=== PATIENT | female | born 1960 | race Hispanic/Latino ===

== ENCOUNTER 2024-05-19 11:58 | Emergency (ER) | payer MEDICAID ==
--- OUTSIDE RECORDS SUMMARY | 2024-05-19 12:03 | XMS REPORT | Continuity of Care Document ---
Author Name Unknown Address [address] [facility] [address] [place] [address] [facility] thconnect Address [address] [facility] [address] [place] [address] Care Team Providers Care Science Job Titles Name Role Phone Pcp, Patient Does Not Have A Primary Care Physic william LATISHA HAWLEY Attending Clinician Unavailable SUKH QUACH Attending Clinician Unavailable ZAC MACEDO Attending Clinician Unavailable MD DARRELL Attending Clinician Unavailab JEROME Zafar Attending Clinician Unavailable MJ LOMAS Attending Clinician Unavailable NETO WILLOUGHYB Attending Clinician Unav ailable KEITH LUTZ Attending Clinician Unavailable AYANA CLARK Attending Clinician Unavailable LAB90 Attending Clinician Unavailable PJ QUACH Attending Clinician Unavailable MANDO WEBB Attending Clinician Unava ilable [email or web address]_S Attending Clinician Unavaila NOLAN Cooley Attending Clinician UnavailMAJO Cross Attending Clinician Unavailable NANCY OLWRY Attending Clinician Unavailable COBY MENDES Attending Clinician Unavailable OBEY VALENZUELA Attending Clinician Unavailab ALBIN Rodriguez Attending Clinician Unav ailable ANA MARIA BARBER Attending Clinician Unavaila Ana Maria Upton Attending Clinician [phone] CLAUDY MENDES Attending Clinician Unavailable STAN SHARIF Attending Clinician Unavail able SHERYL MARIE Attending Clinician Unavailable Sheryl Pandya Attending Clinician [phone] [id number] Attending Clinician Unavailable INEZ Attending Clinician Unavailable SHAD GAYLE Attending Clinician Unavaila JCARLOS Lord Attending Clinician Unavailab SAUNDRA Hill Attending Clinician Unavailable Sukh Quach DO Attending Clinician [phone] SARAH HELMSOI Evangelina Attending Clinician Unavailab demetria WATERSZinaS Attending Clinician Unavailable Logan Beyer Attending Clinician [phone] NAT_L Attending Clinician Unavailable Karie Walter Attending Clinician [phone] Lab, Adc Fam Pob I Attending Clinician Unavailab Ana Lebron MD Attending Clinician [phone] ANA QUESADA Attending Clinician Unavailable Doctor Unassigned, Big[place] Attending Clinician U navailable [email or web address] Admitting Clinician Unavaila SHERYL Sandhu Admitting Clinician Unavailable WATERS_S Admitting Clinician Unavailable NAT_Venkat Admitting Clinician Unavailable Payers Payer Name Policy Type Policy Number Effective Date Expirati on Date Source Bib + Tuck [employer] 16 [id number] 00:00:00 [facility] [id number] 2021 00:00:00 Problems Condition Name Condition Details Condition Category Status Onset Date Resolution Date Last Treatment Date Treating Clinician Comments Source Alzheimer' s disease, unspecifie d Alzheimer' s disease, unspecifie d Disease Active 10-09 00:00: 00 Xiomara herbert Immunodefi ciency due to conditions classified elsewhere (multi HCC) Immunodefi ciency due to conditions classified elsewhere (multi HCC) Disease Active 09-11 00:00: 00 Xiomara herbert Chronic obstructiv e pulmonary disease, unspecifie d COPD type (multi HCC) Chronic obstructiv e pulmonary disease, unspecifie d COPD type (multi HCC) Disease Active 09-11 00:00: 00 Xiomara herbert 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 10/2021 A1c 5.8 Xiomara Seybold - Externa l Mixed hyperlipid emia Mixed hyperlipid emia Disease Active 10-26 00:00: 00 Overview: Formattin g of this note might be different from the original. Lab 10/2021 showed mixed Hyperlipi demia Xiomara Seybold - Externa l Well adult exam Well adult exam Disease Active 10-25 00:00: 00 Xiomara Bellold - Externa l Attention deficit hyperactiv ity disorder (ADHD), predominan tly inattentiv e type Attention deficit hyperactiv ity disorder (ADHD), predominan tly inattentiv e type Disease Active 10-25 00:00: 00 Overview: Formattin g of this note might be different from the original. JAMES Funez - Externa l Bipolar disorder, current episode mixed, moderate (multi HCC) Bipolar disorder, current episode mixed, moderate (multi HCC) Disease Active 10-25 00:00: 00 Overview: Formattin g of this note might be different from the original. JAMES Funez - Externa l Dementia associated with other underlying disease without behavioral disturbanc e Dementia associated with other underlying disease without behavioral disturbanc e Disease Active 10-25 00:00: 00 Overview: Formattin g of this note might be different from the original. Neurology -Dr. Jay herbert Chronic bilateral low back pain without sciatica Chronic bilateral low back pain without sciatica Disease Active 10-25 00:00: 00 Xiomara herbert Slow transit constipati on Slow transit constipati on Disease Active 10-25 00:00: 00 Overview: Formattin g of this note might be different from the original. GI-Dr. Wilian herbert Seasonal allergic rhinitis due to pollen Seasonal allergic rhinitis due to pollen Disease Active 10-25 00:00: 00 Xiomara herbert Tobacco abuse Tobacco abuse Disease Active 10-25 00:00: 00 Xiomara herbert No known active problems No known active problems Disease [facility] Allergies, Adverse Reactions, Alerts Allergy Name Allergy Type Status Severity Reaction(s) Onset Date Inactive Date Treating Clinician Comments Source Penicill ins Propensi ty to adverse reaction s Active 01-05 00:00: 00 Other reaction( s): Unknown - See comments Xiomara herbert Penicill ins Propensi ty to adverse reaction s Active Unknown - See comments 01-05 00:00: 00 [facility] PENICILL INS Drug Class Active Unknown-Cmnt 01-05 00:00: 00 [facility] Penicill ins Propensi ty to adverse reaction s Active Unknown - See comments 01-05 00:00: 00 [facility] PENICILL INS Allergy to substanc e Active [facility] NO KNOWN ALLERGIE S Drug Class Active [facility] Social History Social Habit Start Date Stop Date Quantity Comments Source Exposure to SARS-CoV-2 (event) Not sure [facility] History of tobacco use Cigarette Smoker Xiomara Lowry External Alcoholic beverage intake 2023-10-10 00:00:00 2023-10-10 00:00:00 Lifetime non-drinker (finding) Xiomara Savage - External Alcohol intake 2023-04-24 00:00:00 2023-04-24 00:00:00 Lifetime non-drinker (finding) Xiomara Savage - External History of Social function 2023-01-08 00:00:00 2023-01-08 00:00:00 Xiomara Savage - External Tobacco use and exposure 2021-10-25 00:00:00 2021-10-25 00:00:00 Smokeless tobacco non-user Xiomara Savage - External Education 2021-10-25 00:00:00 2021-10-25 00:00:00 16 Xiomara Savage - External Sex assigned at 1960 00:00:00 1960 00:00:00 Xiomara Savage - External Smoking Status Start Date Stop Date Source Heavy Tobacco Smoker [facility] Tobacco smoking consumption unknown [facility] [place] [place] Smokes tobacco daily 2021-10-25 00:00:00 Xiomara Savage - External Medications Ordered Medication Name Filled Medication Name Start Date Stop Date Current Medication? Ordering Clinician Indication Dosage Frequency Signature (SIG) Comments Components Source Sertraline HCl 100 MG oral Tablet 10-09 10:53: 06 Yes 100mg 1 tablet (100 mg total) daily. Xiomara herbert Memantine HCl (Namenda) 10 MG oral Tablet 10-09 10:53: 06 Yes 10mg Take 1 tablet (10 mg total) by mouth 2 times daily. Xiomara herbert linaCLOtide (Linzess) 290 MCG oral Capsule 10-09 10:53: 06 Yes 290ug Take 1 capsule (290 mcg total) by mouth daily. Xiomara herbert Cariprazine HCl (Vraylar) 6 MG oral Capsule 10-09 10:53: 06 Yes 6mg Take 6 mg by mouth daily Xiomara herbert Semaglutide -Weight Management (Wegovy) 0.25 MG/0.5ML subcutaneou s Solution Auto-inject or 10-09 00:00: 00 Yes [id number] .25mg Inject 0.25 mg into the skin once a week. Xiomara herbert Metoprolol Succinate 100 MG oral TABLET SR 24 HR 10-09 00:00: 00 Yes [id number] 100mg Take 1 tablet (100 mg total) by mouth daily Take in addition to 50 mg tab. Xiomara herbert Metoprolol Succinate 50 MG oral TABLET SR 24 HR 10-09 00:00: 00 Yes [id number] 50mg Take 1 tablet (50 mg total) by mouth daily Take in addition to 100 mg tabs. Xiomara herbert Sertraline HCl 100 MG oral Tablet 10-04 13:42: 43 Yes 100mg 1 tablet (100 mg total) daily. Xiomara herbert Memantine HCl (Namenda) 10 MG oral Tablet 10-04 13:42: 43 Yes 10mg Take 1 tablet (10 mg total) by mouth 2 times daily. Xiomara herbert linaCLOtide (Linzess) 290 MCG oral Capsule 10-04 13:42: 43 Yes 290ug Take 1 capsule (290 mcg total) by mouth daily. Xiomara herbert Cariprazine HCl (Vraylar) 6 MG oral Capsule 10-04 13:42: 43 Yes 6mg Take 6 mg by mouth daily Xiomara herbert Meloxicam 15 MG oral Tablet 10-04 00:00: 00 Yes 15mg Take 1 tablet (15 mg total) by mouth daily Take with Meals, STOP IF UPSET STOMACH. Xiomara herbert Sertraline HCl 100 MG oral Tablet 09-25 10:58: 36 Yes 100mg 1 tablet (100 mg total) daily. Xiomara herbert Memantine HCl (Namenda) 10 MG oral Tablet 09-25 10:58: 36 Yes 10mg Take 1 tablet (10 mg total) by mouth 2 times daily. Xiomara herbert linaCLOtide (Linzess) 290 MCG oral Capsule 09-25 10:58: 36 Yes 290ug Take 1 capsule (290 mcg total) by mouth daily. Xiomara herbert Cariprazine HCl (Vraylar) 6 MG oral Capsule 09-25 10:58: 36 Yes 6mg Take 6 mg by mouth daily Xiomara herbert Fluticasone -Salmeterol (Wixela Inhub) 250-50 MCG/ACT inhalation AEROSOL POWDER, BREATH ACTIVATED 09-25 00:00: 00 Yes [id number] 1{puff} Inhale 1 puff into the lungs 2 times daily. Xiomara herbert Albuterol HFA 108 (90 Base) MCG/ACT IN AERS 09-25 00:00: 00 10-09 00:00 :00 No [id number] 2{puff} Q.25D Inhale 2 puffs into the lungs every 6 hours as needed for wheezing or shortness of breath. Xiomara herbert Vitamin D, Ergocalcife rol, 1.25 MG (01154 UT) oral Capsule 09-19 00:00: 00 Yes [id number] 81406B Take 1 capsule (50,000 units total) by mouth once a week. Xiomara herbert Calcium 600 MG oral Tablet 09-19 00:00: 00 Yes [id number] 1200mg Take 1,200 mg by mouth daily. Xiomara herbert Metoprolol Succinate 50 MG oral TABLET SR 24 HR 09-11 00:00: 00 10-09 00:00 :00 No [id number] 100mg Take 2 tablets (100 mg total) by mouth daily. Xiomara herbert Fluticasone -Umeclidin- Vilant (Trelegy Ellipta) 100-62.5-25 MCG/ACT inhalation AEROSOL POWDER, BREATH ACTIVATED 09-11 00:00: 00 09-25 00:00 :00 No [id number] 1{puff} Inhale 1 puff into the lungs daily. Xiomara herbert Metoprolol Succinate 50 MG oral TABLET SR 24 HR 09-11 00:00: 00 09-11 00:00 :00 No [id number] 50mg Take 1 tablet (50 mg total) by mouth daily. Xiomara herbert Quetiapine Fumarate 100 MG oral Tablet 09-09 00:00: 00 Yes 100mg Take 1 tablet (100 mg total) by mouth nightly. Xiomara herbert Losartan Potassium (COZAAR) 100 MG oral Tablet 08-22 00:00: 00 Yes [id number] 100mg Take 1 tablet (100 mg total) by mouth daily. Xiomara herbert Metoprolol Succinate 25 MG oral TABLET SR 24 HR 08-22 00:00: 00 09-11 00:00 :00 No [id number] 25mg Take 1 tablet (25 mg total) by mouth daily. Xiomara herbert hydroCHLORO thiazide 25 MG oral Tablet -11 00:00: 00 Yes [id number] 25mg Take 1 tablet (25 mg total) by mouth daily. Xiomara herbert hydrOXYzine HCl 25 MG oral Tablet 07-23 00:00: 00 Yes TAKE 1-2 TABLET BY MOUTH EVERY EVENING NEEDED FOR ANXIETY Xiomara herbert Alendronate Sodium 70 MG oral Tablet 3-07 00:00: 00 09-11 00:00 :00 No [id number] 70mg Take 1 tablet (70 mg total) by mouth every 7 days. Xiomara herbert Atorvastati n Calcium 10 MG oral Tablet 1-16 00:00: 00 Yes [id number] 10mg Take 1 tablet (10 mg total) by mouth daily. Xiomara herbert Doxycycline Hyclate 100 MG oral Tablet - 00:00: 00 Yes [id number] 100mg Take 1 tablet (100 mg total) by mouth 2 times daily. Xiomara herbert methylPREDN ISolone 4 MG oral Tablet Therapy Pack - 00:00: 00 09-11 00:00 :00 No [id number] 1{shashi} Take 1 shashi by mouth See Admin Instructio ns Use as directed. Xiomara herbert Pseudoeph-B romphen-DM 30-2-10 MG/5ML oral Syrup 2022-04 06-13 00:00: 00 09-11 00:00 :00 No [id number] 10mL Q.25D Take 10 mL by mouth 4 times daily as needed. Xiomara herbert Azithromyci n 250 MG oral Tablet 2022-04 00:00: 00 04-18 05:59 :00 No [id number] Take 2 tablets by mouth on day 1 then 1 tablet by mouth daily for 4 days thereafter .. Xiomara herbert Alendronate Sodium 70 MG oral Tablet 2022-04 00:00: 00 Yes [id number] 70mg Take 1 tablet (70 mg total) by mouth every 7 days. Xiomara herbert Losartan Potassium (COZAAR) 100 MG oral Tablet 2022-04 00:00: 00 Yes [id number] 100mg Take 1 tablet (100 mg total) by mouth daily. Xiomara herbert Metoprolol Succinate 25 MG oral TABLET SR 24 HR 2022-04 00:00: 00 Yes [id number] 25mg Take 1 tablet (25 mg total) by mouth daily. Xiomara herbert linaCLOtide (Linzess) 290 MCG oral Capsule 2022-04 15:22: 18 Yes 290ug Take 1 capsule (290 mcg total) by mouth daily. Xiomara herbert Sertraline HCl 100 MG oral Tablet 2022-04 15:08: 20 Yes 100mg 1 tablet (100 mg total) daily. Xiomara herbert Memantine HCl (Namenda) 10 MG oral Tablet 2022-04 15:08: 20 Yes 10mg Take 1 tablet (10 mg total) by mouth 2 times daily. Xiomara herbert Cariprazine HCl (Vraylar) 6 MG oral Capsule 2022-04 15:08: 20 Yes 6mg Take 6 mg by mouth daily Xiomara herbert hydroCHLORO thiazide 25 MG oral Tablet 2022-0417 00:00: 00 Yes [id number] 25mg TAKE 1 TABLET (25 MG TOTAL) BY MOUTH DAILY. Xiomara herbert Sertraline HCl 100 MG oral Tablet 2022-04 09:52: 30 Yes 100mg 1 tablet (100 mg total) daily. Xiomara herbert Memantine HCl (Namenda) 10 MG oral Tablet 2022-04 09:52: 30 Yes 10mg Take 1 tablet (10 mg total) by mouth 2 times daily. Xiomara herbert linaCLOtide (Linzess) 290 MCG oral Capsule 2022-04 09:52: 30 Yes 290ug Take 1 capsule (290 mcg total) by mouth daily. Xiomara herbert Cariprazine HCl (Vraylar) 6 MG oral Capsule 2022-04 09:52: 30 Yes 6mg Take 6 mg by mouth daily Xiomara herbert Metoprolol Succinate 25 MG oral TABLET SR 24 HR 2022-04 00:00: 00 Yes [id number] 25mg Take 1 tablet (25 mg total) by mouth daily. Xiomara herbert Losartan Potassium (COZAAR) 100 MG oral Tablet 2022-04 00:00: 00 Yes [id number] 100mg Take 1 tablet (100 mg total) by mouth daily. Xiomara herbert Calcium Carb-Cholec alciferol (Calcium 500 + D3) 500-15 MG-MCG oral Tablet 2022-04 00:00: 00 Yes [id number] 2{capsu le} Take 2 capsules by mouth daily. Xiomara herbert Amlodipine Besylate (NORVASC) 5 MG oral Tablet 2022-04 00:00: 00 02-02 00:00 :00 No [id number] 5mg Take 1 tablet (5 mg total) by mouth daily. Xiomara herbert Lisdexamfet amine Dimesylate 70 MG oral Capsule 2022-04 00:00: 00 Yes 70mg Take 1 capsule (70 mg total) by mouth every morning. Xiomara herbert Losartan Potassium (COZAAR) 50 MG oral Tablet 2022-04 00:00: 00 02-02 00:00 :00 No [id number] 50mg TAKE 1 TABLET BY MOUTH EVERY DAY Xiomara herbert Alendronate Sodium 70 MG oral Tablet 01-09 00:00: 00 Yes [id number] 70mg Take 1 tablet (70 mg total) by mouth every 7 days. Xiomara herbert linaCLOtide (Linzess) 290 MCG oral Capsule 01-03 10:49: 10 Yes 290ug Take 1 capsule (290 mcg total) by mouth daily. Xiomara herbert Sertraline HCl 100 MG oral Tablet 01-03 10:47: 11 Yes 100mg 1 tablet (100 mg total) daily. Xiomara herbert Memantine HCl (Namenda) 10 MG oral Tablet 01-03 10:47: 11 Yes 10mg Take 1 tablet (10 mg total) by mouth 2 times daily. Xiomara herbert Cariprazine HCl (Vraylar) 6 MG oral Capsule 01-03 10:47: 11 Yes 6mg Take 6 mg by mouth daily Xiomara herbert Sertraline HCl 100 MG oral Tablet 01-01 13:38: 10 Yes 100mg 1 tablet (100 mg total) daily. Xiomara herbert Memantine HCl (Namenda) 10 MG oral Tablet 01-01 13:38: 10 Yes 10mg Take 1 tablet (10 mg total) by mouth 2 times daily. Xiomara herbert linaCLOtide (Linzess) 290 MCG oral Capsule 01-01 13:38: 10 Yes 290ug Take 1 capsule (290 mcg total) by mouth daily. Xiomara herbert Cariprazine HCl (Vraylar) 6 MG oral Capsule 01-01 13:38: 10 Yes 6mg Take 6 mg by mouth daily Xioamra herbert Losartan Potassium (COZAAR) 50 MG oral Tablet 12-28 00:00: 00 Yes [id number] 50mg TAKE 1 TABLET BY MOUTH EVERY DAY Xiomara herbert hydroCHLORO thiazide 25 MG oral Tablet 12-28 00:00: 00 Yes [id number] 25mg TAKE 1 TABLET (25 MG TOTAL) BY MOUTH DAILY. Xiomara herbert ibuprofen (IBU) tablet 600 mg 12-27 21:30: 00 12-27 20:47 :00 No 600mg 600 mg, Oral, ONCE, 1 dose, On Sun12/27/22 at 1630, [facility] HYDROcodone -acetaminop hen (NORCO 5) 5-325 mg tablet 1 tablet 12-27 21:30: 00 12-27 20:47 :00 No 1{tbl} 1 tablet, Oral, ONCE, 1 dose, On Sun12/27/22 at 1630, [facility] methylPREDN ISolone 4 mg tablets 12-27 00:00: 00 Yes [id number] Take by mouth SEE-INSTRU CTIONS. follow package directions [facility] Acetaminoph en-Codeine 300-30 MG oral Tablet 12-27 00:00: 00 01-03 00:00 :00 No TAKE 1 TABLET BY MOUTH EVERY 4 (FOUR) HOURS NEEDED FOR PAIN (SCALE 4-6). INDICATION S: ACUTE PAIN Xiomara herbert TRIMETHOPRI M-SULFAMETH OXAZOLE (BACTRIM DS) 800-160 MG oral Tablet 12-21 00:00: 00 Yes 1{tbl} Take 1 tablet by mouth 2 times daily FOR 10 DAYS. Xiomara herbert Sertraline HCl 100 MG oral Tablet 12-18 09:54: 42 Yes 100mg 1 tablet (100 mg total) daily. Xiomara herbert Memantine HCl (Namenda) 10 MG oral Tablet 12-18 09:54: 42 Yes 10mg Take 1 tablet (10 mg total) by mouth 2 times daily. Xiomara herbert linaCLOtide (Linzess) 290 MCG oral Capsule 12-18 09:54: 42 Yes 290ug Take 1 capsule (290 mcg total) by mouth daily. Xiomara herbert Cariprazine HCl (Vraylar) 6 MG oral Capsule 12-18 09:54: 42 Yes 6mg Take 6 mg by mouth daily Xiomara herbert methylPREDN ISolone 4 MG oral Tablet Therapy Pack 12-18 00:00: 00 01-03 00:00 :00 No [id number] 1{shashi} Take 1 shashi by mouth See Admin Instructio ns Use as directed. Xiomara herbert hydroCHLORO thiazide 25 MG oral Tablet 12-14 00:00: 00 Yes [id number] 50mg Take 2 tablets (50 mg total) by mouth daily. Xiomara herbert HYDROcodone -acetaminop hen (NORCO 5) 5-325 mg tablet 1 tablet 12-12 16:45: 00 12-12 17:00 :00 No 1{tbl} 1 tablet, Oral, ONCE, 1 dose, On Sun12/12/22 at 1145, [facility] Los[facility] Potassium (COZAAR) 50 MG oral Tablet 12-06 00:00: 00 Yes [id number] 50mg Take 1 tablet (50 mg total) by mouth daily Xiomara herbert hydroCHLORO thiazide 25 MG oral Tablet 12-06 00:00: 00 Yes [id number] 25mg Take 1 tablet (25 mg total) by mouth daily Xiomara herbert Celecoxib (CeleBREX) 200 MG oral Capsule 12-06 00:00: 00 Yes [id number] 200mg Take 1 capsule (200 mg total) by mouth 2 times daily Xiomara herbert Mydayis 50 MG oral Capsule 24 Hour Sustained Release 12-04 00:00: 00 Yes TAKE 1 CAPSULE BY MOUTH EVERY DAY IN THE MORNING DIRECTED Xiomara herbert hydroCHLORO thiazide 12.5 MG oral Capsule 11-22 00:00: 00 12-06 00:00 :00 No [id number] 12.5mg Take 1 capsule (12.5 mg total) by mouth daily Xiomara herbert Sertraline HCl 100 MG oral Tablet 11-21 08:58: 01 Yes 100mg 1 tablet (100 mg total) daily Xiomara herbert Memantine HCl (Namenda) 10 MG oral Tablet 11-21 08:58: 01 Yes 10mg Take 1 tablet (10 mg total) by mouth 2 times daily Xiomara herbert linaCLOtide (Linzess) 290 MCG oral Capsule 11-21 08:58: 01 Yes 290ug Take 1 capsule (290 mcg total) by mouth daily Xiomara herbert Cariprazine HCl (Vraylar) 6 MG oral Capsule 11-21 08:58: 01 Yes 6mg Take 6 mg by mouth daily Xiomara herbert Sertraline HCl 100 MG oral Tablet 11-20 13:52: 51 Yes 100mg 1 tablet (100 mg total) daily Xiomara herbert Memantine HCl (Namenda) 10 MG oral Tablet 11-20 13:52: 51 Yes 10mg Take 1 tablet (10 mg total) by mouth 2 times daily Xiomara herbert linaCLOtide (Linzess) 290 MCG oral Capsule 11-20 13:52: 51 Yes 290ug Take 1 capsule (290 mcg total) by mouth daily Xiomara herbert Cariprazine HCl (Vraylar) 6 MG oral Capsule 11-20 13:52: 51 Yes 6mg Take 6 mg by mouth daily Xiomara herbert Fluticasone -Umeclidin- Vilant (Trelegy Ellipta) 100-62.5-25 MCG/ACT inhalation AEROSOL POWDER, BREATH ACTIVATED 11-20 00:00: 00 09-11 00:00 :00 No [id number] 1{puff} Inhale 1 puff into the lungs daily Xiomara herbert hydrOXYzine HCl 25 MG oral Tablet 11-02 00:00: 00 Yes TAKE 1-2 TABLET BY MOUTH EVERY EVENING NEEDED Xiomara herbert Amlodipine Besylate (NORVASC) 5 MG oral Tablet 10-31 00:00: 00 Yes 5mg TAKE 1 TABLET (5 MG TOTAL) BY MOUTH DAILY. Xiomara herbert Symbicort 80-4.5 MCG/ACT inhalation Aerosol 7-11 00:00: 00 11-20 00:00 :00 No [id number] INHALE 2 PUFFS BY MOUTH TWICE A DAY Xiomara herbert Sertraline HCl 100 MG oral Tablet 10-19 12:51: 48 Yes 100mg 1 tablet (100 mg total) daily Xiomara herbert Memantine HCl (Namenda) 10 MG oral Tablet 10-19 12:51: 48 Yes 10mg Take 1 tablet (10 mg total) by mouth 2 times daily Xiomara herbert linaCLOtide (Linzess) 290 MCG oral Capsule 10-19 12:51: 48 Yes 290ug Take 1 capsule (290 mcg total) by mouth daily Xiomara herbert Cariprazine HCl (Vraylar) 6 MG oral Capsule 10-19 12:51: 48 Yes 6mg Take 6 mg by mouth daily Xiomara herbert Amlodipine Besylate (NORVASC) 5 MG oral Tablet 10-18 00:00: 00 Yes 5mg Take 1 tablet (5 mg total) by mouth daily Xiomara herbert Sertraline HCl 100 MG oral Tablet 10-17 09:14: 30 Yes 100mg 1 tablet (100 mg total) daily Xiomara herbert Memantine HCl (Namenda) 10 MG oral Tablet 10-17 09:14: 30 Yes 10mg Take 1 tablet (10 mg total) by mouth 2 times daily Xiomara herbert linaCLOtide (Linzess) 290 MCG oral Capsule 10-17 09:14: 30 Yes 290ug Take 1 capsule (290 mcg total) by mouth daily Xiomara herbert Cariprazine HCl (Vraylar) 6 MG oral Capsule 10-17 09:14: 30 Yes 6mg Take 6 mg by mouth daily Xiomara herbert predniSONE (DELTASONE) 20 MG oral tablet 10-17 00:00: 00 12-18 00:00 :00 No [id number] 40mg Take 2 tablets (40 mg total) by mouth daily for 5 days Xiomara herbert Sertraline HCl 100 MG oral Tablet 09-25 14:04: 14 Yes 100mg 1 tablet (100 mg total) daily. Xiomara herbert Memantine HCl (Namenda) 10 MG oral Tablet 09-25 14:04: 14 Yes 10mg Take 1 tablet (10 mg total) by mouth 2 times daily. Xiomara herbert linaCLOtide (Linzess) 290 MCG oral Capsule 09-25 14:04: 14 Yes 290ug Take 1 capsule (290 mcg total) by mouth daily. Xiomara herbert Cariprazine HCl (Vraylar) 6 MG oral Capsule 09-25 14:04: 14 Yes 6mg Take 6 mg by mouth daily Xiomara herbert Lisinopril 10 MG oral Tablet 09-25 00:00: 00 Yes [id number] 10mg Take 1 tablet (10 mg total) by mouth daily Xiomara herbert Sertraline HCl 100 MG oral Tablet 09-21 11:43: 23 Yes 100mg 1 tablet (100 mg total) daily Xiomara herbert Memantine HCl (Namenda) 10 MG oral Tablet 09-21 11:43: 23 Yes 10mg Take 1 tablet (10 mg total) by mouth 2 times daily Xiomara herbert linaCLOtide (Linzess) 290 MCG oral Capsule 09-21 11:43: 23 Yes 290ug Take 1 capsule (290 mcg total) by mouth daily Xiomara herbert Cariprazine HCl (Vraylar) 6 MG oral Capsule 09-21 11:43: 23 Yes 6mg Take 6 mg by mouth daily Xiomara herbert Budesonide- Formoterol Fumarate (Symbicort) 80-4.5 MCG/ACT inhalation Aerosol 09-21 00:00: 00 Yes [id number] 2{puff} Inhale 2 puffs into the lungs 2 times daily Xiomara herbert Albuterol HFA 108 (90 Base) MCG/ACT IN AERS 09-21 00:00: 00 10-09 00:00 :00 No [id number] 2{puff} Q4H Inhale 2 puffs into the lungs every 4 hours as needed for wheezing or shortness of breath Xiomara herbert predniSONE (DELTASONE) 20 MG oral tablet 09-21 00:00: 00 10-01 04:59 :00 No [id number] Take 3 tablets (60 mg total) by mouth daily for 3 days, THEN 2 tablets (40 mg total) daily for 3 days, THEN 1 tablet (20 mg total) daily for 3 days. Xiomara herbert methylPREDN ISolone 4 MG oral Tablet Therapy Pack 09-21 00:00: 00 09-21 00:00 :00 No [id number] 1{shashi} Take 1 shashi by mouth See Admin Instructio ns Use as directed Xiomara ehrbert busPIRone HCl 15 MG oral Tablet 515 00:00: 00 Yes TAKE 1/2 TO 1 TABLET BY MOUTH THREE TIMES A DAY FOR ANXIETY Xiomara herbert Atorvastati n Calcium (Lipitor) 10 MG oral Tablet 08-18 00:00: 00 Yes [id number] 10mg Take 1 tablet (10 mg total) by mouth daily Xiomara herbert Azithromyci n 250 MG oral Tablet 2021-04 00:00: 00 04-25 05:59 :00 No [id number] Take 2 tablets by mouth on day 1 then 1 tablet by mouth daily for 4 days thereafter . Xiomara herbert Albuterol HFA 108 (90 Base) MCG/ACT IN AERS 11-28 00:00: 00 Yes [id number] 2{puff} Q.25D Inhale 2 puffs into the lungs every 6 hours as needed for wheezing or shortness of breath Xiomara herbert Benzonatate (Tessalon Perles) 100 MG oral Capsule 11-22 00:00: 00 Yes [id number] 12075 100mg [id number] 3D Take 1 capsule (100 mg total) by mouth 3 times daily as needed for cough Xiomara herbert Atorvastati n Calcium (Lipitor) 10 MG oral Tablet 8 00:00: 00 Yes [id number] 10mg Take 1 tablet (10 mg total) by mouth daily Xiomara herbert Sertraline HCl 100 MG oral Tablet 10-25 08:55: 03 Yes 1{each} 1 each daily Xiomara herbert Memantine HCl (Namenda) 10 MG oral Tablet 10-25 08:55: 03 Yes 10mg Take 10 mg by mouth 2 times daily Xiomara herbert linaCLOtide (Linzess) 290 MCG oral Capsule 10-25 08:55: 03 Yes 290ug Take 290 mcg by mouth daily Xiomara herbert Cariprazine HCl (Vraylar) 6 MG oral Capsule 10-25 08:55: 03 Yes 6mg Take 6 mg by mouth daily Xiomara herbert FLUTICASONE PROPIONATE, NASAL, 50 MCG/ACT nasal Suspension 10-25 00:00: 00 Yes [id number] 50ug Use 1 spray (50 mcg total) in each nostril daily Xiomara herbert Temazepam 30 MG oral Capsule 10-15 00:00: 00 Yes TAKE 1 - 2 CAPSULE BY MOUTH EVERY EVENING NEEDED Xiomara herbert Gabapentin 600 MG oral Tablet 10-12 00:00: 00 Yes 1200mg Take 2 tablets (1,200 mg total) by mouth at bedtime. Xiomara herbert Vyvanse 70 MG oral Capsule 10-10 00:00: 00 01-03 00:00 :00 No 70mg Take 1 capsule (70 mg total) by mouth every morning. Xiomara herbert DONEPEZIL HYDROCHLORI DE 10 MG oral Tablet 10-07 00:00: 00 Yes 10mg Take 1 tablet (10 mg total) by mouth 2 times daily. Xiomara herbert busPIRone HCl 10 MG oral Tablet - 00:00: 00 Yes TAKE 1/2 - 1 TABLET BY MOUTH THREE TIMES A DAY NEEDED FOR ANXIETY Xiomara herbert naproxen (NAPROSYN) tablet 500 mg 01-05 17:15: 00 01-05 16:26 :00 No 500mg 500 mg, Oral, ONCE, 1 dose, On Sun01/05/21 at 1215, Routine [facility] HYDROcodone -acetaminop hen (NORCO 5) 5-325 mg tablet 1 tablet 01-05 17:15: 00 01-05 16:26 :00 No 1{tbl} 1 tablet, Oral, ONCE, 1 dose, On Sun01/05/21 at 1215, LIZ [facility] naproxen (NAPROSYN) 500 mg tablet 01-05 00:00: 00 Yes [id number] 500mg Take 1 tablet by mouth 2 (two) times daily with meals. [facility] clonazepam clonazepam No clonazepam [facility] gabapentin gabapentin No gabapentin [facility] Medrol (Shashi) 4 mg tablets in a dose pack Take 1 dose pk by oral route as directed for 6 days. Medrol (Shashi) 4 mg tablets in a dose pack Take 1 dose pk by oral route as directed for 6 days. No 1dose pk(s) Medrol (Shashi) 4 mg tablets in a dose pack Take 1 dose pk by oral route as directed for 6 days. [facility] Vyvanse Vyvanse No Vyvanse S wey [facility] Zoloft 100 mg tablet Take 1 tablet every day by oral route. Zoloft 100 mg tablet Take 1 tablet every day by oral route. No 1 Q1D Zoloft 100 mg tablet Take 1 tablet every day by oral route. [facility] Vital Signs Vital Name Observation Time Observation Value Comments S ource Systolic blood pressure 2023-10-10 15:47:00 144 mm[Hg] Xiomara Perez ld - External Diastolic blood pressure 2023-10-10 15:47:00 72 mm[Hg] Xiomara Seybo ld - External Heart rate 2023-10-10 15:47:00 83 /min Kelse y Seybold - External Body temperature 2023-10-10 15:47:00 36.67 Jennifer Xiomara Seybold - External Respiratory rate 2023-10-10 15:47:00 15 /min Xiomara Seybold - External Body height 2023-10-10 15:47:00 161.9 cm Vita ey Seybold - External Body weight 2023-10-10 15:47:00 66.225 kg Vita ey Seybold - External BMI 2023-10-10 15:47:00 25.26 kg/m2 Vita ey Seybold - External Body height 2023-10-05 18:40:00 165.1 cm Vita ey Seybold - External Body weight 2023-10-05 18:40:00 65.318 kg Vita ey Seybold - External BMI 2023-10-05 18:40:00 23.96 kg/m2 Vita ey Seybold - External Systolic blood pressure 2023-09-26 16:00:00 154 mm[Hg] Xiomara Seybo ld - External Diastolic blood pressure 2023-09-26 16:00:00 70 mm[Hg] Xiomara Seybo ld - External Heart rate 2023-09-26 16:00:00 74 /min Matthewse y Seybold - External Body temperature 2023-09-26 16:00:00 36.56 Jennifer Xiomara Seybold - External Respiratory rate 2023-09-26 16:00:00 18 /min Xiomara Seybold - External Body height 2023-09-26 16:00:00 165.1 cm Vita ey Seybold - External Body weight 2023-09-26 16:00:00 65.59 kg Vita ey Seybold - External BMI 2023-09-26 16:00:00 24.06 kg/m2 Vita ey Seybold - External Oxygen saturation in Arterial blood by Pulse oximetry 2023-09-26 16:00:00 99 /min Xiomara Seybo ld - External Systolic blood pressure 2023-09-12 14:54:00 174 mm[Hg] Xiomara Seybo ld - External Diastolic blood pressure 2023-09-12 14:54:00 68 mm[Hg] Xiomara Seybo ld - External Heart rate 2023-09-12 14:54:00 93 /min Kelse y Seybold - External Body temperature 2023-09-12 14:54:00 36.83 Jennifer Xiomara Seybold - External Respiratory rate 2023-09-12 14:54:00 15 /min Xiomara Seybold - External Body height 2023-09-12 14:54:00 165.1 cm Vita ey Seybold - External Body weight 2023-09-12 14:54:00 65.772 kg Vita ey Seybold - External BMI 2023-09-12 14:54:00 24.13 kg/m2 Vita ey Seybold - External Systolic blood pressure 2023-04-12 19:31:00 142 mm[Hg] Xiomara Seybo ld - External Diastolic blood pressure 2023-04-12 19:31:00 72 mm[Hg] Xiomara Seybo ld - External Heart rate 2023-04-12 19:31:00 79 /min Kelse y Seybold - External Body temperature 2023-04-12 19:31:00 36.5 Jennifer Xiomara Seybold - External Respiratory rate 2023-04-12 19:31:00 20 /min Xiomara Seybold - External Body height 2023-04-12 19:31:00 165.1 cm Vita ey Seybold - External Body weight 2023-04-12 19:31:00 66.225 kg Vita ey Seybold - External BMI 2023-04-12 19:31:00 24.30 kg/m2 Vita ey Seybold - External Oxygen saturation in Arterial blood by Pulse oximetry 2023-04-12 19:31:00 99 /min Xiomara Seybo ld - External Systolic blood pressure 2023-02-02 14:50:00 160 mm[Hg] Xiomara Seybo ld - External Diastolic blood pressure 2023-02-02 14:50:00 80 mm[Hg] Xiomara Seybo ld - External Heart rate 2023-02-02 14:50:00 91 /min Kelse y Seybold - External Body temperature 2023-02-02 14:50:00 36.33 Jennifer Xiomara Seybold - External Respiratory rate 2023-02-02 14:50:00 14 /min Xiomara Seybold - External Body height 2023-02-02 14:50:00 165.1 cm Vita ey Seybold - External Body weight 2023-02-02 14:50:00 64.864 kg Vita ey Seybold - External BMI 2023-02-02 14:50:00 23.80 kg/m2 Vita ey Seybold - External Systolic blood pressure 2023-01-03 16:10:00 148 mm[Hg] Xiomara Seybo ld - External Diastolic blood pressure 2023-01-03 16:10:00 68 mm[Hg] Xiomara Seybo ld - External Heart rate 2023-01-03 15:44:00 86 /min Kelse y Seybold - External Body temperature 2023-01-03 15:44:00 36.67 Jennifer Xiomara Seybold - External Respiratory rate 2023-01-03 15:44:00 15 /min Xiomara Seybold - External Body height 2023-01-03 15:44:00 165.1 cm Vita ey Seybold - External Body weight 2023-01-03 15:44:00 64.864 kg Vita ey Seybold - External BMI 2023-01-03 15:44:00 23.80 kg/m2 Vita ey Seybold - External Systolic blood pressure 2023-01-01 18:36:00 130 mm[Hg] Xiomara Seybo ld - External Diastolic blood pressure 2023-01-01 18:36:00 80 mm[Hg] Xiomara Seybo ld - External Heart rate 2023-01-01 18:36:00 86 /min Kelse y Seybold - External Respiratory rate 2023-01-01 18:36:00 16 /min Xiomara Seybold - External Body height 2023-01-01 18:36:00 165.1 cm Vita ey Seybold - External Body weight 2023-01-01 18:36:00 65.318 kg Vita ey Seybold - External BMI 2023-01-01 18:36:00 23.96 kg/m2 Vita ey Seybold - External Systolic blood pressure 2022-12-27 20:43:49 170 mm[Hg] [facility] Diastolic blood pressure 2022-12-27 20:43:49 86 mm[Hg] [facility] Heart rate 2022-12-27 20:43:49 85 /min Un[facility] Body temperature 2022-12-27 20:43:[address] [facility] [place] [place] Respiratory rate 2022-12-27 20:43:49 16 /min [facility] [place] [place] Oxygen saturation in Arterial blood by Pulse oximetry 2022-12-27 20:43:49 98 /min [facility] Body height 2022-12-27 19:05:00 165.1 cm [facility] Body weight 2022-12-27 19:05:00 65.772 kg [facility] BMI 2022-12-27 19:05:00 24.13 kg/m2 [facility] Systolic blood pressure 2022-12-18 14:50:00 148 mm[Hg] Xiomara Seybo ld - External Diastolic blood pressure 2022-12-18 14:50:00 70 mm[Hg] Xiomara Seybo ld - External Heart rate 2022-12-18 14:50:00 86 /min Kelse y Seybold - External Body temperature 2022-12-18 14:50:00 36.56 Jennifer Xiomara Seybold - External Respiratory rate 2022-12-18 14:50:00 14 /min Xiomara Seybold - External Body height 2022-12-18 14:50:00 165.1 cm Vita ey Seybold - External Body weight 2022-12-18 14:50:00 65.318 kg Vita ey Seybold - External BMI 2022-12-18 14:50:00 23.96 kg/m2 Vita ey Seybold - External Systolic blood pressure 2022-12-12 19:00:00 138 mm[Hg] [facility] Diastolic blood pressure 2022-12-12 19:00:00 72 mm[Hg] [facility] Heart rate 2022-12-12 19:00:00 75 /min [facility] Respiratory rate 2022-12-12 19:00:00 16 /min [facility] [place] [place] Oxygen saturation in Arterial blood by Pulse oximetry 2022-12-12 19:00:00 99 /min [facility] Body temperature 2022-12-12 16:10:[address] [facility] [place] [place] Body height 2022-12-12 16:10:00 165.1 cm [facility] Body weight 2022-12-12 16:10:00 64.411 kg [facility] BMI 2022-12-12 16:10:00 23.63 kg/m2 [facility] Systolic blood pressure 2022-12-06 18:42:00 170 mm[Hg] Xiomara Seybo ld - External Diastolic blood pressure 2022-12-06 18:42:00 71 mm[Hg] Xiomara Seybo ld - External Heart rate 2022-12-06 18:42:00 96 /min Kelse y Seybold - External Body temperature 2022-12-06 18:42:00 36.61 Jennifer Xiomara Seybold - External Respiratory rate 2022-12-06 18:42:00 15 /min Xiomara Seybold - External Body height 2022-12-06 18:42:00 165.1 cm Vita ey Seybold - External Body weight 2022-12-06 18:42:00 65.227 kg Vita ey Seybold - External BMI 2022-12-06 18:42:00 23.93 kg/m2 Vita ey Seybold - External Oxygen saturation in Arterial blood by Pulse oximetry 2022-12-06 18:42:00 99 /min Xiomara Seybo ld - External Systolic blood pressure 2022-11-20 18:59:00 159 mm[Hg] Xiomara Seybo ld - External Diastolic blood pressure 2022-11-20 18:59:00 84 mm[Hg] Xiomara Seybo ld - External Heart rate 2022-11-20 18:59:00 85 /min Kelse y Seybold - External Body temperature 2022-11-20 18:59:00 36.94 Jennifer Xiomara Seybold - External Respiratory rate 2022-11-20 18:59:00 18 /min Xiomara Seybold - External Body height 2022-11-20 18:59:00 165.1 cm Vita ey Seybold - External Body weight 2022-11-20 18:59:00 61.236 kg Vita ey Seybold - External BMI 2022-11-20 18:59:00 22.47 kg/m2 Vita ey Seybold - External Oxygen saturation in Arterial blood by Pulse oximetry 2022-11-20 18:59:00 97 /min Xiomara Seybo ld - External Systolic blood pressure 2022-10-19 17:47:00 146 mm[Hg] Xiomara Seybo ld - External Diastolic blood pressure 2022-10-19 17:47:00 70 mm[Hg] Xiomara Seybo ld - External Body temperature 2022-10-19 17:47:00 36.89 Jennifer Xiomara Seybold - External Respiratory rate 2022-10-19 17:47:00 16 /min Xiomara Seybold - External Body height 2022-10-19 17:47:00 165.1 cm Vita ey Seybold - External Body weight 2022-10-19 17:47:00 60.328 kg Vita ey Seybold - External BMI 2022-10-19 17:47:00 22.13 kg/m2 Vita ey Seybold - External Systolic blood pressure 2022-10-17 14:16:00 167 mm[Hg] Xiomara Seybo ld - External Diastolic blood pressure 2022-10-17 14:16:00 74 mm[Hg] Xiomara Seybo ld - External Heart rate 2022-10-17 14:16:00 74 /min Kelse y Seybold - External Body temperature 2022-10-17 14:16:00 36.61 Jennifer Xiomara Seybold - External Respiratory rate 2022-10-17 14:16:00 16 /min Xiomara Seybold - External Body height 2022-10-17 14:16:00 165.1 cm Vita ey Seybold - External Body weight 2022-10-17 14:16:00 61.598 kg Vita ey Seybold - External BMI 2022-10-17 14:16:00 22.60 kg/m2 Vita ey Seybold - External Oxygen saturation in Arterial blood by Pulse oximetry 2022-10-17 14:16:00 100 /min Xiomara Seybo ld - External Systolic blood pressure 2022-09-25 18:59:00 162 mm[Hg] Xiomara Lopezybo ld - External Diastolic blood pressure 2022-09-25 18:59:00 70 mm[Hg] Xiomara Bello ld - External Heart rate 2022-09-25 18:59:00 78 /min Kelse y Seybold - External Body temperature 2022-09-25 18:59:00 36.5 Jennifer Xiomara Seybold - External Body height 2022-09-25 18:59:00 165.1 cm Vita ey Seybold - External Body weight 2022-09-25 18:59:00 62.143 kg Vita ey Seybold - External BMI 2022-09-25 18:59:00 22.80 kg/m2 Vita ey Seybold - External Body height 2022-09-21 16:40:00 165.1 cm Vita ey Seybold - External Body weight 2022-09-21 16:40:00 62.143 kg Vita ey Seybold - External BMI 2022-09-21 16:40:00 22.80 kg/m2 Vita ey Seybold - External Oxygen saturation in Arterial blood by Pulse oximetry 2022-09-21 16:40:00 95 /min Xiomara Bello ld - External Systolic blood pressure 2022-09-21 16:40:00 148 mm[Hg] Xiomara Bello ld - External Diastolic blood pressure 2022-09-21 16:40:00 66 mm[Hg] Xiomara Bello ld - External Heart rate 2022-09-21 16:40:00 81 /min Kelse y Seybold - External Body temperature 2022-09-21 16:40:00 36.67 Jennifer Xiomara Lopezybold - External Respiratory rate 2022-09-21 16:40:00 14 /min Xiomara Lopezybold - External Systolic blood pressure 2022-04-19 20:58:00 128 mm[Hg] Xiomara Lopezybo ld - External Diastolic blood pressure 2022-04-19 20:58:00 70 mm[Hg] Xiomara Lopezybo ld - External Heart rate 2022-04-19 20:58:00 78 /min Kelse y Seybold - External Body temperature 2022-04-19 20:58:00 37.22 Jennifer Xiomara Savage - External Respiratory rate 2022-04-19 20:58:00 14 /min Xiomara Savage - External Body height 2022-04-19 20:58:00 165.1 cm Vita Savage - External Body weight 2022-04-19 20:58:00 56.7 kg Vita Bellold - External BMI 2022-04-19 20:58:00 20.80 kg/m2 Vita Savage - External Oxygen saturation in Arterial blood by Pulse oximetry 2022-04-19 20:58:00 99 /min Xiomara Perez ld - External Systolic blood pressure 2021-01-05 14:49:00 160 mm[Hg] [facility] Diastolic blood pressure 2021-01-05 14:49:00 74 mm[Hg] [facility] Heart rate 2021-01-05 14:49:00 80 /min [facility] Body temperature 2021-01-05 14:49:[address] [facility] [place] [place] Respiratory rate 2021-01-05 14:49:00 18 /min [facility] [place] [place] Body weight 2021-01-05 14:49:00 62.596 kg [facility] Oxygen saturation in Arterial blood by Pulse oximetry 2021-01-05 14:49:00 100 /min [facility] BP Diastolic 2020-12-23 00:00:00 62 mm[Hg] [facility] Height 2020-12-23 00:00:00 65 [in_i] [facility] BMI (Body Mass Index) 2020-12-23 00:00:00 25.4 kg/m2 [facility] BP Systolic 2020-12-23 00:00:00 149 mm[Hg] [facility] Body Weight 2020-12-23 00:00:00 2446 [oz_av] [facility] Procedures Procedure Date / Time Performed Performing Clinicia n Source ASSIGNMENT OF BENEFITS 2022-12-27 20:46:29 Docto r Unassigned, Biggs [facility] [place] [place] CONSENT/REFUSAL FOR DIAGNOSIS AND TREATMENT 2022-12-27 18:47:33 Doctor Unassigned, Big[place] [facility] [place] [place] URIC ACID 2022-12-12 17:50:00 Sheryl Marie [facility] COMP. METABOLIC PANEL ([id number]) 2022-12-12 17:50:[address] [facility] [place] [place] CBC WITH DIFF 2022-12-12 17:50:00 Sheryl Marie [facility] URINALYSIS 2022-12-12 17:50:00 Sheryl Marie [facility] N-TERMINAL PRO-BNP 2022-12-12 17:50:[address] [facility] [place] [place] XR ANKLE 3+ VW LEFT 2022-12-12 16:59:[address] [facility] [place] [place] CONSENT/REFUSAL FOR DIAGNOSIS AND TREATMENT 2022-12-12 16:04:42 Doctor Unassigned, [place] [facility] [place] [place] CT KNEE RIGHT WO CONTRAST 2021-01-05 16:27:[address] [facility] [place] [place] XR HIPS 3 VW RIGHT 2021-01-05 15:40:[address] [facility] [place] [place] XR KNEE <3 VW RIGHT 2021-01-05 15:40:[address] [facility] [place] [place] XR TIBIA FIBULA 2 VW RIGHT 2021-01-05 15:40:[address] [facility] [place] [place] CONSENT/REFUSAL FOR DIAGNOSIS AND TREATMENT 2020-11-10 16:36:45 Doctor Unassigned, [place] [facility] [place] [place] Plan of Care Planned Activity Planned Date Details Comments Source Diagnostic Test Pending 2020-12-23 00:00:00 rapid SARS CoV 2 Ag, QL IA, respiratory specimen [code = rapid SARS CoV 2 Ag, QL IA, respiratory specimen] [facility] Diagnostic Test Pending 2020-12-23 00:00:00 rapid strep group A, throat [code = rapid strep group A, throat] [facility] Instructions [facility] Encounters Start Date/Time End Date/Time Encounter Type Admission Type Attending Clinicians Care Facility Care Department Encounter ID Source 2021-02-21 22:43:54 Emergency [facility] [id number] [facility] 2024-05-19 00:00:00 2024-05-19 00:00:00 Outpatient CECILYLATISHA Herbert XIOMARA NAM [id number] [facility] 2024-05-07 00:00:00 2024-05-07 00:00:00 Outpatient CHANDAN LATISHA NAM [id number] [facility] 2024-05-01 00:00:00 2024-05-01 00:00:00 Outpatient TODD QUACHAND XIOMARA NAM [id number] [facility] 2024-04-25 00:00:00 2024-04-25 00:00:00 Outpatient SUKH QUACH [id number] [facility] 2024-04-23 00:00:00 2024-04-23 00:00:00 Outpatient ZAC MACEDO [id number] [facility] 2024-03-06 00:00:00 2024-03-06 00:00:00 Outpatient MD XIOMARA MENON [id number] [facility] 2024-03-06 00:00:00 2024-03-06 00:00:00 Outpatient JEROME GREEN [id number] [facility] 2024-03-04 00:00:00 2024-03-04 00:00:00 Outpatient CHANDAN LATISHA NAM [id number] [facility] 2024-02-27 00:00:00 2024-02-27 00:00:00 Outpatient ZAC MACEDO [id number] [facility] 2024-01-23 00:00:00 2024-01-23 00:00:00 Outpatient MD XIOMARA MENON [id number] [facility] 2024-01-04 00:00:00 2024-01-04 00:00:00 Outpatient XIOMARA NAM [id number] [facility]one[facility] 2024-01-03 00:00:00 2024-01-03 00:00:00 Outpatient ZAC MACEDO [id number] [facility] 2023-12-04 00:00:00 2023-12-04 00:00:00 Outpatient ZAC MACEDO XIOMARA NAM [id number] [facility] 2023-11-30 00:00:00 2023-11-30 00:00:00 Outpatient XIOMARA NAM [id number] [facility] 2023-11-29 00:00:00 2023-11-29 00:00:00 Outpatient PRESUKH ALCAZAR XIOMARA NAM [id number] [facility] 2023-11-28 00:00:00 2023-11-28 00:00:00 Outpatient LATISHA HAWLEY [id number] [facility] 2023-11-21 13:20:00 2023-11-21 13:20:00 Outpatient ABEBE MJ XIOMARA NAM [id number] [facility] 2023-11-20 10:30:00 2023-11-20 10:30:00 Outpatient NETO QUIÑONES [id number] [facility] 2023-11-03 00:00:00 2023-11-03 00:00:00 [id number] [facility]:00:00 2023-11-01 00:00:00 Outpatient PREZASSUKH XIOMARA NAM [id number] [facility] 2023-10-24 13:45:00 2023-10-24 13:45:00 Outpatient LINDAKEITH MI XIOMARA NAM [id number] [facility] 2023-10-16 11:00:00 2023-10-16 11:00:00 Outpatient XIOMARA NAM [id number] [facility] 2023-10-16 00:00:00 2023-10-16 00:00:00 Outpatient JEROME GREEN [id number] [facility] Sey[facility] 2023-10-10 11:00:00 2023-10-10 11:00:00 Outpatient LATISHA HAWLEY [id number] [facility] 2023-10-09 10:30:00 2023-10-09 10:30:00 Outpatient KEITH LUTZ XIOMARA NAM [id number] [facility] 2023-10-05 14:00:00 2023-10-05 14:00:00 Outpatient ZAC MACEDO XIOMARA NAM [id number] [facility] 2023-10-05 13:20:00 2023-10-05 13:20:00 Outpatient XIOMARA NAM [id number] [facility] 2023-10-04 13:40:00 2023-10-04 13:40:00 Outpatient AMBERAYANA [facility] [id number] [facility] 2023-[facility]04 00:00:00 2023-10-04 00:00:00 Outpatient REMINGTON, ZAC XIOMARA NAM [id number] [facility] 2023-09-26 11:30:00 2023-09-26 11:30:00 Outpatient JEROME GREEN [facility] [id number] [facility] 2023-09-26 00:00:00 2023-09-26 00:00:00 Outpatient ZAC MACEDO XIOMARA NAM [id number] [facility] 2023-09-26 00:00:00 2023-09-26 00:00:00 Outpatient XIOMARA NAM [id number] [facility] 2023-09-22 00:00:00 2023-09-22 00:00:00 Outpatient [facility] [id number] [facility]23-[facility]20 00:00:00 2023-09-20 00:00:00 Outpatient LATISHA HAWLEY [id number] [facility] 2023-09-12 11:15:00 2023-09-12 11:15:00 Outpatient WILLIAM NAM [id number] [facility] 2023-09-12 10:00:00 2023-09-12 10:00:00 Outpatient LATISHA HAWLEY [id number] [facility] 2023-08-23 00:00:00 2023-08-23 00:00:00 Outpatient LATISHA HAWLEY [id number] [facility] 2023-08-02 00:00:00 2023-08-02 00:00:00 Outpatient CHANDAN LATISHA XIOMARA NAM [id number] [facility] 2023-06-25 00:00:00 2023-06-25 00:00:00 [facility] [id number] [facility] 00:00:00 2023-05-05 00:00:00 Outpatient VAZQUEZ SUKH XIOMARA NAM [id number] [facility] 2023-04-24 10:30:00 2023-04-24 10:30:00 Outpatient PJ QUACH [id number] [facility] 2023-04-17 00:00:00 2023-04-17 00:00:00 Outpatient PREZAS, SUKH NAM [id number] [facility] 2023-04-12 13:45:00 2023-04-12 13:45:00 Outpatient JON MANDO XIOMARA NAM [id number] [facility] 2023-03-31 00:00:00 2023-03-31 00:00:00 Outpatient CHANDAN LATISHA NAM [id number] [facility] 2023-03-06 00:00:00 2023-03-06 00:00:00 Outpatient CHANDAN LATISHA NAM [id number] [facility] 2023-02-24 00:00:00 2023-02-24 00:00:00 Outpatient CHANDAN LATISHA NAM [id number] [facility] 2023-02-17 00:00:00 2023-02-17 00:00:00 Outpatient GC_[email or web address] diyala_S PRIV [facility] [id number] [facility] 2023-02-16 11:30:00 2023-02-16 11:30:00 Outpatient NOLAN ALLEN [id number] [facility] 2023-02-13 00:00:00 2023-02-13 00:00:00 Outpatient MAJO CHAIDEZ [id number] [facility] 2023-02-08 09:30:00 2023-02-08 09:30:00 Outpatient NANCY LOWRY XIOMARA NAM [id number] [facility] 2023-02-06 00:00:00 2023-02-06 00:00:00 Outpatient CHANDAN LATISHA NAM [id number] [facility] 2023-02-02 10:00:00 2023-02-02 10:00:00 Outpatient HUNDVenkat, LATISHA NAM [id number] [facility] 2023-01-31 11:00:00 2023-01-31 11:00:00 Outpatient HUNDVenkat, LATISHA NAM [id number] [facility] 2023-01-27 00:00:00 2023-01-27 00:00:00 Outpatient HUNDVenkat, LATISHA NAM [id number] [facility] 2023-01-16 11:30:00 2023-01-16 11:30:00 Outpatient COBY MENDES XIOMARA NAM [id number] [facility] 2023-01-15 11:00:00 2023-01-15 11:00:00 Outpatient DENNISRODNEY DILLONTALHA NAM [id number] [facility] [facility] 2023-01-09 10:20:00 2023-01-09 10:20:00 Outpatient XIOMARA NMA [id number] [facility] 2023-01-09 00:00:00 2023-01-09 00:00:00 Outpatient CECILYVenkat LATISHA NAM [id number] [facility] 2023-01-03 11:45:00 2023-01-03 11:45:00 Outpatient LAB90 XIOMARA NAM [id number] [facility] 2023-01-03 11:00:00 2023-01-03 11:00:00 Outpatient CECILYVenkat LATISHA NAM [id number] [facility] 2023-01-02 00:00:00 2023-01-02 00:00:00 Outpatient OBEY VALENZUELA [id number] [facility] 2023-01-02 00:00:00 2023-01-02 00:00:00 Outpatient XIOMARA NAM [id number] [facility] 2023-01-02 00:00:00 2023-01-02 00:00:00 Outpatient LATISHA HAWLEY XIOMARA NAM [id number] [facility] 2023-01-02 00:00:00 2023-01-02 00:00:00 Outpatient XIOMARA NAM [id number] [facility] 2023-01-01 14:20:00 2023-01-01 14:20:00 Outpatient ALBIN RENDON XIOMARA NAM [id number] [facility] 2023-01-01 13:25:00 2023-01-01 13:25:00 Outpatient XIOMARA NAM [id number] [facility] 2023-01-01 00:00:00 2023-01-01 00:00:00 Outpatient XIOMARA NAM [id number] [facility] 2023-01-01 00:00:00 2023-01-01 00:00:00 Outpatient VAUGHNCOBY XIOMARA NAM [id number] [facility] 2022-12-28 00:00:00 2022-12-28 00:00:00 Outpatient LATISHA HAWLEY XIOMARA NAM [id number] [facility] 2022-12-27 14:07:00 2022-12-27 15:50:00 Emergency X ANA MARIA BARBER [facility] ERT [id number] [facility] 2022-12-27 14:07:00 2022-12-27 15:50:00 Emergency WaylandAna Maria carmen [facility] [id number] 350.1.13.10 [id number] [id number] [facility] 2022-12-27 00:00:00 2022-12-27 00:00:00 Outpatient ALBIN RENDON XIOMARA NAM [id number] [facility] 2022-12-26 00:00:00 2022-12-26 00:00:00 Outpatient [facility]UD[facility]ENDES [id number] [facility] 2022-12-25 00:00:00 2022-12-25 00:00:00 Outpatient STAN SHARIF XIOMARA NAM [id number] [facility] 2022-12-20 00:00:00 2022-12-20 00:00:00 Outpatient VAUGHN CLAUDY NAM [id number] [facility] 2022-12-18 10:00:00 2022-12-18 10:00:00 Outpatient OBEY VALENZUELA XI[facility] NAM [id number] [facility] 2022-12-15 00:00:00 2022-12-15 00:00:00 Outpatient JOANNESUKH Alvarez XIOMARA NAM [id number] [facility] 2022-12-15 00:00:00 2022-12-15 00:00:00 Outpatient XIOMARA NAM [id number] [facility] 2022-12-15 00:00:00 2022-12-15 00:00:00 Outpatient XIOMARA NAM [id number] [facility] 2022-12-13 00:00:00 2022-12-13 00:00:00 Outpatient VAUGHNCLAUDY XIOMARA NAM [id number] [facility] 2022-12-12 11:11:00 2022-12-12 14:06:00 Emergency X SHERYL MARIE [facility] ERT [id number] [facility] 2022-12-12 11:11:00 2022-12-12 14:06:00 Emergency Sheryl Marie [facility] [id number] 350.1.13.10 4.2.7.2.686 [id number] [facility] 2022-12-07 00:00:00 2022-12-07 00:00:00 Outpatient COBY MENDES XIOMARA NAM [id number] [facility] 2022-12-06 14:50:00 2022-12-06 14:50:00 Outpatient WILLIAM XIOMARA NAM [id number] [facility] 2022-12-06 14:00:2022-12-06 14:00:00 Outpatient LATISHA HAWLEY XIOMARA NAM [id number] [facility] 2022-12-04 10:00:00 2022-12-04 10:00:00 Outpatient JEROME GREEN XIOMARA NAM [id number] [facility] 2022-11-21 00:00:00 2022-11-21 00:00:00 Outpatient CLAUDY MENDES [id number] [facility] 2022-11-20 14:30:00 2022-11-20 14:30:00 Outpatient JEROME GREEN XIOMARA NAM [id number] [facility] 2022-11-10 00:00:00 2022-11-10 00:00:00 Outpatient JEROME GREEN XIOMARA NAM [id number] [facility] 2022-11-08 15:00:00 2022-11-08 15:00:00 Outpatient XIOMARA NAM [id number] [facility] 2022-10-31 00:00:00 2022-10-31 00:00:00 Outpatient MD XIOMARA MENON [id number] [facility] 2022-10-31 00:00:00 2022-10-31 00:00:00 Outpatient COBY MENDES [id number] [facility] 2022-10-31 00:00:00 2022-10-31 00:00:00 Outpatient LATISHA HAWLEY [id number] [facility] 2022-10-25 14:45:00 2022-10-25 14:45:00 Outpatient XIOMARA NAM [id number] [facility] 2022-10-20 10:40:00 2022-10-20 10:40:00 Outpatient CARLOSDulce NAM [id number] [facility] 2022-10-19 13:00:00 2022-10-19 13:00:00 Outpatient LATISHA HAWLEY [id number] [facility] 2022-10-18 10:00:00 2022-10-18 10:00:00 Outpatient COBY MENDES [id number] [facility] 2022-10-18 09:45:00 2022-10-18 09:45:00 Outpatient TRED45 XIOMARA NAM [id number] [facility] 2022-10-17 11:30:00 2022-10-17 11:30:00 Outpatient PLABPA XIOMARA NAM [id number] [facility] 2022-10-17 09:30:00 2022-10-17 09:30:00 Outpatient JEROME GREEN [facility] NAM [id number] [facility] 2022-10-17 00:00:00 2022-10-17 00:00:00 Outpatient LATISHA HAWLEY XI[facility] NAM [id number] [facility] 2022-10-04 10:30:00 2022-10-04 10:30:00 Outpatient SHAD GAYLE XIOMARA NAM [id number] [facility] 2022-09-25 14:30:00 2022-09-25 14:30:00 Outpatient CHANDAN, LATISHA XI[facility] NAM [id number] [facility] 2022-09-21 16:00:00 2022-09-21 16:00:00 Outpatient CHANDAN LATISHA XIOMARA NAM [id number] [facility] 2022-09-21 00:00:00 2022-09-21 00:00:00 Outpatient RADHA JCARLOS NAM [id number] [facility] 2022-08-18 00:00:00 2022-08-18 00:00:00 Outpatient SUKH QUACH [id number] [facility] 2022-07-13 00:00:00 2022-07-13 00:00:00 Outpatient XIOMARA NAM [id number] [facility] 2022-07-12 00:00:00 2022-07-12 00:00:00 Outpatient SUKH QUACH [id number] [facility] 2022-07-05 00:00:00 2022-07-05 00:00:00 Outpatient SUKH QUACH [id number] [facility] 2022-06-14 00:00:00 2022-06-14 00:00:00 Outpatient PREZASSUKH [id number] [facility] 2022-05-18 00:00:00 2022-05-18 00:00:00 Outpatient SAUNDRA KIRK [id number] [facility] 2022-05-17 00:00:00 2022-05-17 00:00:00 Outpatient PREZAS, SUKH NAM [id number] [facility] 2022-04-19 15:15:00 2022-04-19 15:15:00 Outpatient PREZAS, SUKH NAM [id number] [facility] 2022-03-29 00:00:00 2022-03-29 00:00:00 Outpatient PREZAS, SUKH NAM [id number] [facility] 2022-01-30 00:00:00 2022-01-30 00:00:00 Outpatient PREZAS, SUKH NAM [id number] [facility] 2021-11-28 00:00:00 2021-11-28 00:00:00 Outpatient PREZAS, SUKH NAM [id number] [facility] 2021-11-28 00:00:00 2021-11-28 00:00:00 Outpatient PREZAS, SUKH NAM [id number] [facility] 2021-11-22 13:30:00 2021-11-22 13:31:19 Telemedici ne Sukh Quach [id number] 350.1.13.13 [id number] [id number] [facility] 2021-11-22 00:00:00 2021-11-22 00:00:00 Outpatient PREZASUKH Alvarez XIOMARA [id number] [facility] 2021-11-21 00:00:00 2021-11-21 00:00:00 Outpatient PREZAS, SUKH NAM [facility]ARA [id number] [facility] 2021-10-26 00:00:00 2021-10-26 00:00:00 Outpatient SUKH QUACH [id number] [facility] 2021-10-26 00:00:00 2021-10-26 00:00:00 Outpatient SUKH QUACH [id number] [facility] 2021-10-25 10:00:00 2021-10-25 10:00:00 Outpatient LAB90 XIOMARA NAM [id number] [facility] 2021-10-25 09:15:00 2021-10-25 09:15:00 Office Visit SUKH QUACH [id number] 350.1.13.13 [id number] [id number] [facility] 2021-10-21 00:00:00 2021-10-21 00:00:00 Outpatient SAVITA HELMS XIOMARA XIOMARA [id number] [facility] 2021-04-26 02:37:00 2021-04-26 02:37:00 Outpatient WATERS_S [facility] [id number] [facility] 2021-01-05 09:52:00 2021-01-05 12:13:00 Emergency Logan Sharma [facility] [id number] 350.1.13.10 4.2.7.2.686 [id number] [facility] 2020-12-23 03:51:00 2020-12-23 03:51:00 Outpatient LUÍSROIAN _L [facility] [id number] [facility] 2020-12-23 00:00:00 2020-12-23 00:00:00 Outpatient Karie Walter [facility] [id number] 2020-12-23 00:00:00 2020-12-23 00:00:00 [facility]ivares, [facility] [address] [place] [address], [address], [place] [address] , Ph. [facility] [id number] [facility] 2020-11-10 11:37:50 2020-11-10 11:57:50 Laboratory Only Lab, Adc Fam Pob I Ana Quesada [facility] [address] 1.840.114 350.1.13.10 4.2.7.2.686 [id number] [facility] 2020-11-10 11:20:00 2020-11-10 11:20:00 Outpatient R [facility] [id number] [facility] 2020-11-10 00:00:00 2020-11-10 00:00:00 Orders Only Doctor Unassigned, [facility] ..840.114 350.1.13.10 4.2.7.2.686 [id number] [facility] Results Test Description Test Time Test Comments Results Result Co mments Source [facility], [place]. METABOLIC PANEL ([id number])2022-12-12 18:34:00* Test Item Value Reference Range Interpretation Comme nts NA (test code = 3417359569) 141 mmol/L 135-145 K (test code = 5919483223) 4.1 mmol/L 3.5-5.0 CL (test code = 8770222936) 106 mmol/L 98-108 CO2 TOTAL (test code = 6686702807) 26 mmol/L 23-31 AGAP (test code = 8915771151) 9 2-16 BUN (test code = 9638348644) 12 mg/dL 7-23 GLUCOSE (test code = 0251463246) 83 mg/dL 70-110 CREATININE (test code = 7424225780) 0.54 mg/dL 0.50-1.04 TOTAL BILI (test code = 1131714559) 0.3 mg/dL 0.1-1.1 CALCIUM (test code = 1958091742) 9.6 mg/dL 8.6-10.6 T PROTEIN (test code = 6639680252) 7.9 g/dL 6.3-8.2 ALBUMIN (test code = 2041606723) 4.6 g/dL 3.5-5.0 ALK PHOS (test code = 2555699002) 127 U/L 34-122 H ALTv (test code = 1742-6) 32 U/L 5-35 AST(SGOT) (test code = 9047784305) 42 U/L 13-40 H eGFR (test code = 4360250788) 115.2 mL/min/1.73m2 BRAYDEN (test code = BRAYDEN) Association of Glomerular Filtration Rate (GFR) and Staging of Kidney Disease* + --+ --+ ------+| GFR (mL/min/1.73 m2) ?| With Kidney Damage ?| ?Without Kidney Damage+ --------+ --------+ +| ?>90 ?| ?Stage one ?| ? Normal ?+ ---+ ---+ -------+| ?60-89 ?| ?Stage two ?| ? Decreased GFR ? + --+ --+ ------+| ?30-59 ?| ?Stage three ?| ? Stage three ? + --+ --+ ------+| ?15-29 ?| ?Stage four ? | ? Stage four ?+ ---+ ---+ -------+| ?<15 (or dialysis) ? ?| ?Stage five ? | ? Stage five ?+ ---+ ---+ -------+ *Each stage assumes the associated GFR level has been in effect for at least three months. ?Stages 1 to 5, with or without kidney disease, indicate chronic kidney disease. Notes: Determination of stages one and two (with eGFR >59mL/min/1.73 m2) requires estimation of kidney damage for at least three months as defined by structural or functional abnormalities of the kidney, manifested by either:Pathological abnormalities or Markers of kidney damage (including abnormalities in the composition of the blood or urine or abnormalities in imaging tests). Lab Interpretation (test code = 99386-6) [id number] 18:34:00* Test Item Value Reference Range Interpretation Comme nts URIC ACID (test code = 0189797143) 5.1 mg/dL 2.9-6.0 Lab Interpretation (test cod e = 05943-1) Normal [facility] WITH [id number] 18:14:58* Test Item Value Reference Range Interpretation Comme nts WBC (test code = 6690-2) 8.04 See_Comment [Automated messa ge] The system which generated this result transmitted reference range: 4.30 - 11.10 10*3/?L. The reference range was not used to interpret this result as normal/abnormal. RBC (test code = 789-8) 4.31 See_Comment [Automated messa ge] The system which generated this result transmitted reference range: 3.93 - 5.25 10*6/?L. The reference range was not used to interpret this result as normal/abnormal. HGB (test code = 718-7) 13.8 g/dL 11.6-15.0 HCT (test code = 4544-3) 40.8 % 35.7-45.2 MCV (test code = 787-2) 94.7 fL 80.6-95.5 MCH (test code = 785-6) 32.0 pg 25.9-32.8 MCHC (test code = 786-4) 33.8 g/dL 31.6-35.1 RDW-SD (test code = 58068-2) 43.6 fL 39.0-49.9 RDW-CV (test code = 788-0) 12.6 % 12.0-15.5 PLT (test code = 777-3) 222 See_Comment [Automated messa ge] The system which generated this result transmitted reference range: 166 - 358 10*3/?L. The reference range was not used to interpret this result as normal/abnormal. MPV (test code = 98273-8) 9.3 fL 9.5-12.9 L NRBC/100 WBC (test code = 2389620725) 0.0 See_Comment [Automated [employer] ssage] The system which generated this result transmitted reference range: 0.0 - 10.0 /100 WBCs. The reference range was not used to interpret this result as normal/abnormal. NRBC x10^3 (test code = 4645342928) See_Comment [Automated messa ge] The system which generated this result transmitted reference range: 10*3/?L. The reference range was not used to interpret this result as normal/abnormal. GRAN MAT (NEUT) % (test code = 770-8) 56.9 % IMM GRAN % (test code = 0185351749) 0.50 % LYMPH % (test code = 736-9) 30.0 % MONO % (test code = 5905-5) 10.7 % EOS % (test code = 713-8) 1.0 % BASO % (test code = 706-2) 0.9 % GRAN MAT x10^3(ANC) (test code = 6085991057) 4.58 10*3/uL 1.88-7.09 IMM GRAN x10^3 (test code = 6870108978) 0.04 10*3/uL 0.00-0.06 LYMPH x10^3 (test code = 731-0) 2.41 10*3/uL 1.32-3.29 MONO x10^3 (test code = 742-7) 0.86 10*3/uL 0.33-0.92 EOS x10^3 (test code = 711-2) 0.08 10*3/uL 0.03-0.39 BASO x10^3 (test code = 704-7) 0.07 10*3/uL 0.01-0.07 Lab Interpretation (test code = 46246-0) Abnormal [facility], [place]"
--- NOTE | 2024-05-19 12:34 | RAD REPORT ---
EXAMINATION: US LEFT LOWER EXTREMITY VENOUS DOPPLER CLINICAL INDICATION: PAIN TECHNIQUE: Complete bilateral duplex sonography of the LEFT lower extremity veins was performed. The examination included compression for vein patency, color Doppler imaging and flow augmentation in response to distal compression of the distal external iliac, common femoral, femoral, popliteal, tibi al, and great and small saphenous veins. COMPARISON: No prior exam. FINDINGS: Duplex sonography testing of the veins of the LEFT lower extremity was performed. Color flow imaging shows all veins to be compressible with xdib-iu-[id number] color filling. Pulsatile and phasic flow is present within all lower extremity deep and superficial veins examined. IMPRESSION: There is no deep vein or superficial vein thrombosis.
--- NOTE | 2024-05-19 12:48 | RAD REPORT ---
Exam:Knee Left 3 View HISTORY: Left knee pain FINDINGS: No fracture or dislocation seen Small to moderate joint effusion is present. Minimal osteoarthritis medial compartment. The bones appear osteoporotic
--- NOTE | 2024-05-19 13:21 | EDPHYS ---
Physician Documentation [facility] Name: Eva Meek Age: 64 yrs Sex: Female : 1960 Arrival Date: 05/19/2024 Time: 11:58 Bed DIS1 Private MD: ED Physician Russ Gonzalez HPI: 05/19 12:31 This 64 yrs old Female presents to ER via Ambulatory with complaints of Knee rn Pain - LEFT. 12:31 The patient presents with pain. The complaints affect the posterior aspect of left knee rn and left knee. Onset: The symptoms/episode began/occurred 3 day(s) ago. Modifying factors: The symptoms are alleviated by nothing. the symptoms are aggravated by bending knee. Severity of symptoms: At their worst the symptoms were mild, in the emergency department the symptoms are unchanged. The patient has not experienced similar symptoms in the past. Patient reports left knee pain, started a few days ago, denies injury or direct trauma. Reports pain with ambulation and weightbearing as well as bending knee. No discoloration. Also reports slight pain behind the knee. Patient reports has very brittle bones and has had fractures before and her sleep.. Historical: - Allergies: 12:07 PENICILLINS; ap3 - PMHx: 12:07 Hypertensive disorder; ap3 - Immunization history:: Client reports having NOT received the Covid vaccine. Flu vaccine is not up to date. - Infectious Disease History:: Denies. - Social history:: Smoking status: Patient denies any tobacco usage or history of. - Family history:: not pertinent. - Hospitalizations: : No recent hospitalization is reported. ROS: 12:31 Constitutional: Negative for fever, chills, and weight loss, Cardiovascular: Negative rn for chest pain, palpitations, and edema, Respiratory: Negative for shortness of breath, cough, wheezing, and pleuritic chest pain, Abdomen/GI: Negative for abdominal pain, nausea, vomiting, diarrhea, and constipation, Back: Negative for injury and pain, MS/Extremity: Positive for left knee pain Skin: Negative for injury, rash, and discoloration, Neuro: Negative for headache, weakness, numbness, tingling, and seizure, Exam: 12:31 Constitutional: This is a well developed, well nourished patient who is awake, alert, rn and in no acute distress. Cardiovascular: Regular rate and rhythm. No pulse deficits. Respiratory: No increased work of breathing, no retractions or nasal flaring. Skin: Warm, dry MS/ Extremity: Pulses equal, no cyanosis. Neurovascular intact. Full active and passive flexion and extension of left knee with mild pain with range of motion. No focal bony tenderness. Small knee effusion palpated. No discoloration. No warmth. Vital Signs: 12:05 BP 163 / 89; Pulse 81; Resp 17; Temp 98.2(O); Pulse Ox 98% on R/A; Weight 65.77 kg; ap3 Height 5 ft. 3 in. ; Pain 9/10; 12:05 Body Mass Index 25.69 (65.77 kg, 160.02 cm) ap3 12:05 Pain Scale: Adult ap3 MDM: 12:05 Medical Screening Exam initiated rn 13:19 Differential diagnosis: closed fracture, Knee effusion, arthritis. Differential rn diagnosis: Internal knee derangement. Data reviewed: vital signs, nurses notes. Counseling: I had a detailed discussion with the patient and/or guardian regarding the historical points, exam findings, and any diagnostic results supporting the discharge/admit diagnosis, radiology results, the need for outpatient follow up, to return to the emergency department if symptoms worsen or persist or if there are any questions or concerns that arise at home. Special discussion: I discussed with the patient/guardian in detail that at this point there is no indication for admission to the hospital. It is understood, however, that if the symptoms persist or worsen the patient needs to return immediately for re-evaluation. Based on the history and exam findings, there is no indication for further emergent testing or inpatient evaluation. I discussed with the patient/guardian the need to see the orthopedic surgeon for further evaluation of the symptoms. I discussed with the patient/guardian the need to see the primary care provider for further evaluation of the symptoms. ED course: X-ray left knee images negative for fracture or dislocation per my interpretation. Small knee effusion that was palpable and visible on x-ray. Patient is afebrile and joint is not hot or warm. Will wrap and discharge home with anti-inflammatory medication with PCP and Ortho follow-up. Return precautions given and understood.. 05/19 12:17 Order name: XRAY Knee LEFT 3 view; Complete Time: 13:06 rn 05/19 12:17 Order name: Extremity [employer]ous [employer] US; Complete Time: 12:37 rn 05/19 13:06 Order name: Fei Wrap; Complete Time: 13:11 rn Administered Medications: No medications were administered Disposition Summary: 05/19/24 13:20 Discharge Ordered Notes: Location: Home rn Problem: new rn Symptoms: have improved rn Condition: Stable rn Diagnosis - Effusion, left knee rn - Osteoarthritis of knee, unspecified rn Followup: rn - With: Private Physician - When: As needed - Reason: Recheck today's complaints, Re-evaluation by your physician Discharge Instructions: - Discharge Summary Sheet rn - Arthritis rn - Knee Effusion rn Forms: - Medication Reconciliation Form rn - Antibiotic culinary internship - Prescription Opioid Use rn - Patient Portal Instructions rn - Leadership Thank You Letter rn Prescriptions: - Tramadol 50 mg Oral Tablet - take 1 tablet ORAL route every 8 hours as needed; 12 tablet; Refills: 0, rn Product Selection Permitted Signatures: Dispatcher [employer] EDMS Russ Gonzalez MD MD rn Prokisch, Amanda, RN RN ap3 Corrections: (The following items were deleted from the chart) 12:08 12:07 Allergies: No Known Allergies; ap3 ap3 12:17 12:17 Knee Left 3 View+RAD.RAD.BRZ ordered. EDMS EDMS 12:17 12:17 Extremity Venous [employer]+US.RAD.BRZ ordered. EDMS EDMS
--- NOTE | 2024-05-19 13:21 | ER ---
Nurse's Notes [facility] Name: Eva Meek Age: 64 yrs Sex: Female : 1960 Arrival Date: 05/19/2024 Time: 11:58 Bed DIS1 Private MD: Diagnosis: Effusion, left knee;Osteoarthritis of knee, unspecified Presentation: 05/19 12:05 Chief complaint: Patient states: she started having left knee pain approx three days ap3 ago. patient denies any trauma or falls to the knee. patient also stats she has never had any procedures on the painful knee. patient currently rates her pain as a 9/10 on the pain scale. Coronavirus screen: At this time, the client does not indicate any symptoms associated with coronavirus-19. Ebola Screen: No symptoms or risks identified at this time. Initial Sepsis Screen: Does the patient meet any 2 criteria? No. Patient's initial sepsis screen is negative. Does the patient have a suspected source of infection? No. Patient's initial sepsis screen is negative. Risk Assessment: Do you want to hurt yourself or someone else? Patient reports no desire to harm self or others. Onset of symptoms was May 16, 2023. 12:05 Method Of Arrival: Ambulatory ap3 12:05 Acuity: MARCELO 4 ap3 Triage Assessment: 12:08 General: Appears in no apparent distress. Behavior is calm, cooperative, appropriate ap3 for age. Pain: Complains of pain in left knee Pain currently is 9 out of 10 on a pain scale. Pain began gradually, 2-3 days ago. Neuro: Level of Consciousness is awake, alert, obeys commands. Cardiovascular: Patient's skin is warm and dry. Respiratory: Airway is patent Respiratory effort is even, unlabored, Respiratory pattern is regular, symmetrical. Historical: - Allergies: 12:07 PENICILLINS; ap3 - PMHx: 12:07 Hypertensive disorder; ap3 - Immunization history:: Client reports having NOT received the Covid vaccine. Flu vaccine is not up to date. - Infectious Disease History:: Denies. - Social history:: Smoking status: Patient denies any tobacco usage or history of. - Family history:: not pertinent. - Hospitalizations: : No recent hospitalization is reported. Screenin:08 [facility] ED Fall Risk Assessment (Adult) History of falling in the last 3 months, ap3 including since admission No falls in past 3 months (0 pts) Confusion or Disorientation No (0 pts) Intoxicated or Sedated No (0 pts) Impaired Gait No (0 pts) Mobility Assist Device Used No (0 pt) Altered Elimination No (0 pt) Score/Fall Risk Level 0 - 2 = Low Risk Oriented to surroundings, Maintained a safe environment, Educated pt \T\ family on fall prevention, incl call for assistance when getting out of bed, Assessed \T\ reinforced patient's understanding of fall precautions, Hourly rounding (assess needs \T\ fall precautionary measures) done, Used ambulatory aids as needed (educated on \T\ assisted with), Used gait belt as appropriate. Abuse screen: Denies threats or abuse. Nutritional screening: No deficits noted. Tuberculosis screening: No symptoms or risk factors identified. Assessment: 13:15 General: Appears in no apparent distress. uncomfortable, Behavior is calm, cooperative. ld1 13:15 Pain: Complains of pain in left leg and left knee Pain radiates to posterior aspect of ld1 left knee Pain currently is 6 out of 10 on a pain scale. Quality of pain is described as aching, pressure, throbbing. Musculoskeletal: Range of motion: limited in left knee Reports pain in left knee. Vital Signs: 12:05 BP 163 / 89; Pulse 81; Resp 17; Temp 98.2(O); Pulse Ox 98% on R/A; Weight 65.77 kg; ap3 Height 5 ft. 3 in. ; Pain 9/10; 12:05 Body Mass Index 25.69 (65.77 kg, 160.02 cm) ap3 12:05 Pain Scale: Adult ap3 ED Course: 12:03 Patient arrived in ED. sj2 12:05 Russ Gonzalez MD is Attending Physician. rn 12:07 Triage completed. ap3 12:09 Arm band placed on right wrist. ap3 12:32 Extremity Venous Uni [employer] US In Process Unspecified. EDMS 12:41 XRAY Knee LEFT 3 view In Process Unspecified. EDMS 13:15 Patient has correct armband on for positive identification. Provided Education on: Fei ld1 wrap to left knee, Rest, Ice, elevate extremity. Pain medication as needed. Follow up with orthopedics. 13:15 No provider procedures requiring assistance completed. Patient did not have IV access ld1 during this emergency room visit. Administered Medications: No medications were administered Medication: 13:15 VIS not applicable for this client. ld1 Outcome: 13:15 Discharged to home ambulatory, ld1 13:15 Condition: stable 13:15 Discharge instructions given to patient, Instructed on discharge instructions, follow up and referral plans. medication usage, Demonstrated understanding of instructions, follow-up care, medications, Prescriptions given X 1, 13:20 Discharge ordered by . rn 13:38 Patient left the ED. ld1 Signatures: Dispatcher [employer] EDMS Russ Gonzalez MD MD rn Prokisch, Amanda RN RN ap3 Ana Rosa Roy RN RN ld1 Ravinder Calvert2 Corrections: (The following items were deleted from the chart) 12:08 12:07 Allergies: No Known Allergies; ap3 ap3
[2024-05-19 16:05] VITALS: BP 163/89; TEMP 98.2; O2SAT 98
== END 2024-05-19 13:38 | disposition home or self-care (01) ==
LOC: ER 11:58
DX: M25.462 Effusion, left knee (principal); M17.12 Unilateral primary osteoarthritis, left knee
CPT/HCPCS: 93971; 99283